=== PATIENT | male | born 1955 | race African-American/Black ===

== ENCOUNTER 2020-03-03 10:08 | Emergency (ER) | payer MEDICAID ==
[2020-03-03] VITALS (8 sets, daily range): BP systolic 95–120; BP diastolic 54–74
[~2020-03-03] VITALS: Ht 180.3 cm; Wt 59.0 kg
[2020-03-03 11:13] LABS: Hematocrit 14.5 % (41.0-53.0); Mean Corpuscular Hemoglobin 29.4 pg (28.0-32.0); Mean Corpuscular Hgb Conc. 32.7 g/dL (32.0-36.0); Mean Corpuscular Volume 89.8 fL (80.0-100.0); Red Blood Cells 1.61 10^6/uL (4.5-5.90)
[2020-03-03 11:15] LABS: Chloride 105 mmol/L (98-107); Sodium 140 mmol/L (136-145)
[2020-03-03 11:21] LABS: Red Cell Distribution Width 23.8 % (11.8-14.3)
[2020-03-03 11:22] LABS: Hemoglobin 4.7 g/dL (13.5-17.5)
[2020-03-03 11:24] LABS: Basophils % (manual) 0 (0.0-2.0); Blast Cells 0; Eosinophils % (manual) 0 (0-7); Promyelocytes % 0; Reactive Lymphocytes 0
[2020-03-03 11:25] LABS: Alanine Aminotransferase 8 U/L (16-61); Albumin 2.2 g/dL (3.4-5.0); Alkaline Phosphatase 438 U/L (45-117); Anion Gap 10 (5-15); Aspartate Aminotransferase 48 U/L (15-37); BUN/Creatinine Ratio 20.9; Bilirubin, Total 0.9 mg/dL (0.2-1.0); Blood Urea Nitrogen 23 mg/dL (7-18); Calcium 7.5 mg/dL (8.5-10.1); Carbon Dioxide 25 mmol/L (21-32); GFR African American 87 mL/min; GFR Non-African American 72 mL/min; Glucose 145 mg/dL (74-106)
[2020-03-03 12:40] LABS: INR 1.28 (0.9-1.15); Partial Thromboplastin Time 27.9 sec (23.0-31.2)
[2020-03-03 12:52] LABS: Band Neutrophils % (manual) 6; Lymphocytes % (manual) 9 (10.0-50.0); Monocytes % (manual) 5 (0-12)
[2020-03-03 12:53] LABS: Metamyelocytes % 1; Myelocytes % 3
[2020-03-03 20:50] LABS: Urine Bacteria MANY /hpf (None Seen); Urine Blood 2+ /uL (Negative); Urine Mucus FEW (None Seen); Urine Specific Gravity 1.016 (1.001-1.035); Urine WBC 1172 /hpf (0 - 3); Urine WBC Clumps PRESENT /hpf (None Seen)
[2020-03-03] MEDS ORDERED: POTASSIUM CHL 20 Meq TABLET PO ONE (21:00)
[2020-03-03] MEDS ORDERED: CIPROFLOXACIN HCL 500 MG TAB PO ONE (22:15)
== END 2020-03-03 23:35 | disposition home or self-care (01) ==
LOC: ER 10:08 → EDBD 10:08 → ER 23:35
DX: D64.9 Anemia, unspecified (principal); D69.6 Thrombocytopenia, unspecified; E87.6 Hypokalemia; N39.0 Urinary tract infection, site not specified; F17.210 Nicotine dependence, cigarettes, uncomplicated; I10 Essential (primary) hypertension; Z20.828 Contact with and (suspected) exposure to other viral communicable diseases
CPT/HCPCS: 36415; 36430; 71045; 80053; 81001; 83735; 84484; 85007; 85027; 85610; 85730; 86850; 86900; 86901; 86920; 87426; 93005; 99285; C9803; P9016; U0003